=== PATIENT | male | born 1960 ===

== ENCOUNTER 2018-06-22 09:54 | Emergency (ER) | payer OTHER ==
[2018-06-22 09:59] VITALS: BMI 33.4
[2018-06-22 10:02] VITALS: RESP 18; O2SAT 96
[2018-06-22] MEDS ORDERED: Sodium Chloride 0.9% 1,000 ML IV STA (10:52)
[2018-06-22 11:44] LABS: BASO % 0.4 % (0.0-2.0); EOS # 0.1 K/uL (0.0-0.7); EOS % 0.7 % (0.0-4.0); HEMOGLOBIN 15.9 g/dL (12.0-18.0); LYMPH # 1.7 K/uL (1.0-4.3); LYMPH % 19.6 % (20.0-40.0); MEAN CELL VOLUME 93.9 fL (80.0-94.0); MEAN CORPUSCULAR HGB CONC 34.1 g/dL (33.0-37.0); MEAN PLATELET VOLUME 10.3 fL (7.2-11.7); MONO # 0.5 K/uL (0.0-0.8); MONO % 5.6 % (0.0-10.0); NEUT # 6.3 K/uL (1.8-7.0); NEUT % 73.7 % (50.0-75.0); NRBC % 0.2 % (0.0-2.0); RBC 4.95 Mil/uL (4.40-5.90); RED CELL DISTRIBUTION WIDTH 13.9 % (11.5-14.5); WHITE BLOOD COUNT 8.5 K/uL (4.8-10.8)
[2018-06-22 11:46] LABS: URINE BILIRUBIN NEGATIVE (NEGATIVE); URINE BLOOD 1+ (NEGATIVE); URINE CLARITY Clear (Clear); URINE COLOR Yellow (YELLOW); URINE GLUCOSE (UA) 3+ mg/dL (Normal); URINE LEUKOCYTE ESTERASE NEG Leu/uL (Negative); URINE PROTEIN NEGATIVE (NEGATIVE); URINE UROBILINOGEN NORMAL mg/dL (0.2-1.0)
[2018-06-22 11:55] LABS: PROTHROMBIN TIME 11.3 SECONDS (9.7-12.2)
[2018-06-22 11:59] LABS: ALB/GLOB RATIO 1.7 (1.0-2.1); ALBUMIN 4.1 g/dL (3.5-5.0); ALT/SGPT 21 U/L (21-72); AST/SGOT 25 U/L (17-59); BLOOD UREA NITROGEN 8 mg/dL (9-20); CALCIUM 9.1 mg/dl (8.6-10.4); GFR NON-AFRICAN AMERICAN > 60; LIPASE 81 U/L (23-300)
[2018-06-22] MEDS ORDERED: Sodium Chloride 0.9% 1,000 ML ONE (12:22)
--- NOTE | 2018-06-22 12:23 | US ---
Right upper quadrant abdominal ultrasound HISTORY: Right upper quadrant abdominal pain. COMPARISON: None available. Technique: Real-time sonography was performed through the right upper quadrant of the abdomen. FINDINGS: Limited study secondary to large patient body habitus. Liver: Prominent measuring 18.7 centimeters in length. Increased echogenicity of the hepatic parenchymal cortex suggestive for fatty infiltration versus hepatic parenchymal disease. Clinical correlation. Gallbladder: 6 millimeter echogenic foci at the gallbladder wall suggestive for polyp versus calculi. This appears nonmobile. Normal wall thickness of 2.7 millimeters. No gross wall edema. Negative sonographic Cool's sign. Common bile duct measures 3 millimeters, within normal limits. Limited visualization of the pancreas. Limited visualization of the aorta. Visualized portions appear grossly preserved. IVC is grossly preserved. Right kidney: 12.5 x 6.4 x 6.5 centimeters. No calculi or hydronephrosis. Impression: Limited study secondary to large patient body habitus. Prominent liver measuring 18.7 centimeters in length with associated increased echogenicity of the hepatic parenchymal cortex suggestive for fatty infiltration versus hepatic parenchymal disease. Clinical correlation. 6 millimeter nonmobile echogenic foci at the gallbladder wall suggestive for polyp versus calculus. No gross wall thickening. No gross wall edema. Negative sonographic Cool's sign. Limited visualization of the pancreas. Limited visualization the aorta.
--- NOTE | 2018-06-22 13:20 | C.PDOC ---
History Of Present Illness 57 y/o male comes in complaining of RUQ pain x1 week. Patient denies any vomiting, diarrhea, fever, or chills. Patient states he has decreased appetite. Otherwise he has no other complaints. Time Seen by Provider: 06/22/18 10:30 Chief Complaint (Nursing): Abdominal Pain History Per: Patient History/Exam Limitations: no limitations Onset/Duration Of Symptoms: Days Current Symptoms Are (Timing): Still Present Past Medical History Reviewed: Historical Data, Nursing Documentation, Vital Signs Vital Signs: Last Vital Signs Temp 97.5 F L 06/22/18 09:59 Pulse 101 H 06/22/18 09:59 Resp 18 06/22/18 09:59 BP 194/108 H 06/22/18 09:59 Pulse Ox 96 06/22/18 09:59 - Medical History PMH: Hiatal Hernia Family History: States: No Known Family Hx - Social History Hx Alcohol Use: Yes Hx Substance Use: No - Immunization History Hx Tetanus Toxoid Vaccination: No Hx Influenza Vaccination: No Hx Pneumococcal Vaccination: No Review Of Systems Except As Marked, All Systems Reviewed And Found Negative. Constitutional: Positive for: Other (Decreased appetite). Negative for: Fever, Chills Gastrointestinal: Positive for: Abdominal Pain (RUQ). Negative for: Vomiting, Diarrhea Genitourinary: Negative for: Dysuria Musculoskeletal: Negative for: Back Pain Physical Exam - Physical Exam Appears: Non-toxic, No Acute Distress Skin: Warm, Dry Head: Atraumatic, Normacephalic Eye(s): bilateral: Normal Inspection Oral Mucosa: Moist Neck: Supple Cardiovascular: Rhythm Regular, No Murmur Respiratory: No Rales, No Rhonchi, No Wheezing Gastrointestinal/Abdominal: Tenderness (in RUQ), Guarding, Hernia (ventral hernia, reducible, nontender) Extremity: No Pedal Edema Extremity: Bilateral: Atraumatic, Normal Color And Temperature, Normal ROM Neurological/Psych: Oriented x3, Normal Speech ED Course And Treatment - Laboratory Results Result Diagrams: 06/22/18 11:34 06/22/18 11:34 Lab Results: PT 11.3 SECONDS (9.7-12.2) 06/22/18 11:34 INR 1.0 06/22/18 11:34 APTT 35 SECONDS (21-34) H 06/22/18 11:34 Total Bilirubin 0.4 mg/dL (0.2-1.3) 06/22/18 11:34 AST 25 U/L (17-59) 06/22/18 11:34 ALT 21 U/L (21-72) 06/22/18 11:34 Alkaline Phosphatase 66 U/L (38-126) 06/22/18 11:34 Total Protein 6.5 g/dL (6.3-8.3) 06/22/18 11:34 Albumin 4.1 g/dL (3.5-5.0) 06/22/18 11:34 Globulin 2.4 gm/dL (2.2-3.9) 06/22/18 11:34 Albumin/Globulin Ratio 1.7 (1.0-2.1) 06/22/18 11:34 Lipase 81 U/L (23-300) 06/22/18 11:34 Urine Color Yellow (YELLOW) 06/22/18 11:34 Urine Clarity Clear (Clear) 06/22/18 11:34 Urine pH 6.0 (5.0-8.0) 06/22/18 11:34 Ur Specific [place] 1.018 (1.003-1.030) 06/22/18 11:34 Urine Protein Negative mg/dL (NEGATIVE) 06/22/18 11:34 Urine Glucose (UA) 3+ mg/dL (Normal) H 06/22/18 11:34 Urine Ketones Negative mg/dL (NEGATIVE) 06/22/18 11:34 Urine Blood 1+ (NEGATIVE) H 06/22/18 11:34 Urine Nitrate Negative (NEGATIVE) 06/22/18 11:34 Urine Bilirubin Negative (NEGATIVE) 06/22/18 11:34 Urine Urobilinogen Normal mg/dL (0.2-1.0) 06/22/18 11:34 Ur Leukocyte Esterase Neg Radha/uL (Negative) 06/22/18 11:34 O2 Sat by Pulse Oximetry: 96 (RA) Pulse Ox Interpretation: Normal - CT Scan/US Abdomen US Other Rad Studies (CT/US): Read By Radiologist, Radiology Report Reviewed CT/US Interpretation: FINDINGS: Limited study secondary to large patient body habitus. Liver: Prominent measuring 18.7 centimeters in length. Increased echogenicity of the hepatic parenchymal cortex suggestive for fatty infiltration versus hepatic parenchymal disease. Clinical correlation. Gallbladder: 6 millimeter echogenic foci at the gallbladder wall suggestive for polyp versus calculi. This appears nonmobile. Normal wall thickness of 2.7 millimeters. No gross wall edema. Negative sonographic Cool's sign. Common bile duct measures 3 millimeters, within normal limits. Limited visualization of the pancreas. Limited visualization of the aorta. Visualized portions appear grossly preserved. IVC is grossly preserved. Right kidney: 12.5 x 6.4 x 6.5 centimeters. No calculi or hydronephrosis. Impression: Limited study secondary to large patient body habitus. Prominent liver measuring 18.7 centimeters in length with associated increased echogenicity of the hepatic parenchymal cortex suggestive for fatty infiltration versus hepatic parenchymal disease. Clinical correlation. 6 millimeter nonmobile echogenic foci at the gallbladder wall suggestive for polyp versus calculus. No gross wall thickening. No gross wall edema. Negative sonographic Cool's sign. Limited visualization of the pancreas. Limited visualization the aorta. Progress Note: Labs, abdomen US, and UA ordered. Patient was given IV fluids, protonix, and toradol. On re-evaluation patient feels better. He was seen by surgery resident at a bedside and was cleared to be d/c home with Clinic, GI and general surgery follow up. Patient was found to be hypertensive and blood sugar was elevated. Rx for Metformin and Lisinopril given Patient was instructed to f/u in the Clinic [facility]. Disposition - Disposition Referrals: [facility] [Outside] Disposition: HOME/ ROUTINE Disposition Time: 14:53 Condition: STABLE Additional Instructions: Follow up with PMD within 1-2 days. Return to ED if feel worse. Prescriptions: metFORMIN [glucOPHAGE] 500 mg PO DAILY #30 tab Lisinopril [Zestril] 10 mg PO DAILY #30 tab Instructions: High Blood Pressure (DC), Acute Abdomen (Belly Pain) Forms: [facility] (Yoruba) - Clinical Impression Clinical Impression: Abdominal pain, Hypertension - PA / THEATRICAL SCENIC DESIGNER / Resident Statement MD/DO has reviewed & agrees with the documentation as recorded. - Scribe Statement The provider has reviewed the documentation as recorded by the Scribe Lilli Coleman All medical record entries made by the Scribe were at my direction and pers onally dictated by me. I have reviewed the chart and agree that the record accurately reflects my personal performance of the history, physical exam, medical decision making, and the department course for this patient. I have also personally directed, reviewed, and agree with the discharge instructions and disposition.
--- NOTE | 2018-06-22 13:36 | CP.PCM.CON ---
History of Present Illness - History of Present Illness History of Present Illness: SURGERY NOTE FOR DR. HEATH 57M with RUQ pain for 7 days which is now improved. Patient tolerating diet, no nausea or vomiting, no fevers or chills. having bowel function but admits to constipation, never had a colonoscopy before. Patient never seen and physician before. Admits to daily drinking of beer and smoking tobacco everyday. Past Patient History - Past Social History Smoking Status: Light Smoker < 10 Cigarettes Daily - GASTROINTESTINAL Hx Gastrointestinal Disorders: Yes - PSYCHIATRIC Hx Substance Use: No - SURGICAL HISTORY Hx Surgeries: No Meds Allergies/Adverse Reactions: Allergies Allergy/AdvReac Type Severity Reaction Status Date / Time No Known Allergies Allergy Verified 06/22/18 09:58 Physical Exam - Constitutional Appears: Non-toxic, No Acute Distress Additional comments: obese - Eye Exam Eye Exam: EOMI, PERRL - ENT Exam ENT Exam: Mucous Membranes Moist - Respiratory Exam Respiratory Exam: Clear to Auscultation Bilateral, NORMAL BREATHING PATTERN - Cardiovascular Exam Cardiovascular Exam: REGULAR RHYTHM, +S1, +S2 - GI/Abdominal Exam GI & Abdominal Exam: Distended, Soft. absent: Firm, Guarding, Rebound, Rigid, Tenderness Additional comments: diastasis recti - Extremities Exam Extremities exam: Negative for: pedal edema, tenderness - Neurological Exam Neurological exam: Alert, Oriented x3 - Psychiatric Exam Psychiatric exam: Normal Affect, Normal Mood - Skin Skin Exam: Dry, Intact, Normal Color, Warm Results - Vital Signs Recent Vital Signs: Last Vital Signs Temp 97.5 F L 06/22/18 09:59 Pulse 101 H 06/22/18 09:59 Resp 18 06/22/18 09:59 BP 194/108 H 06/22/18 09:59 Pulse Ox 96 06/22/18 13:21 - Labs Result Diagrams: 06/22/18 11:34 06/22/18 11:34 Labs: Laboratory Results - last 24 hr 06/22/18 06/22/18 06/22/18 11:34 11:34 11:34 WBC 8.5 RBC 4.95 Hgb 15.9 Hct 46.5 MCV 93.9 MCH 32.0 H MCHC 34.1 RDW 13.9 Plt Count 238 MPV 10.3 Neut % (Auto) 73.7 Lymph % (Auto) 19.6 L [place] % (Auto) 5.6 Eos % (Auto) 0.7 Baso % (Auto) 0.4 Neut # (Auto) 6.3 Lymph # (Auto) 1.7 [place] # (Auto) 0.5 Eos # (Auto) 0.1 Baso # (Auto) 0.0 PT 11.3 INR 1.0 APTT 35 H Sodium Potassium Chloride Carbon Dioxide Anion Gap BUN Creatinine Est GFR ( Amer) Est GFR (Non-Af Amer) Random Glucose Calcium Total Bilirubin AST ALT Alkaline Phosphatase Total Protein Albumin Globulin Albumin/Globulin Ratio Lipase Urine Color Yellow Urine Clarity Clear Urine pH 6.0 Ur Specific [place] 1.018 Urine Protein Negative Urine Glucose (UA) 3+ H Urine Ketones Negative Urine Blood 1+ H Urine Nitrate Negative Urine Bilirubin Negative Urine Urobilinogen Normal Ur Leukocyte Esterase Neg 06/22/18 11:34 WBC RBC Hgb Hct MCV MCH MCHC RDW Plt Count MPV Neut % (Auto) Lymph % (Auto) [place] % (Auto) Eos % (Auto) Baso % (Auto) Neut # (Auto) Lymph # (Auto) [place] # (Auto) Eos # (Auto) Baso # (Auto) PT INR APTT Sodium 136 Potassium 4.1 Chloride 97 L Carbon Dioxide 31 H Anion Gap 13 BUN 8 L Creatinine 0.5 L Est GFR ( Amer) > 60 Est GFR (Non-Af Amer) > 60 Random Glucose 269 H Calcium 9.1 Total Bilirubin 0.4 AST 25 ALT 21 Alkaline Phosphatase 66 Total Protein 6.5 Albumin 4.1 Globulin 2.4 Albumin/Globulin Ratio 1.7 Lipase 81 Urine Color Urine Clarity Urine pH Ur Specific [place] Urine Protein Urine Glucose (UA) Urine Ketones Urine Blood Urine Nitrate Urine Bilirubin Urine Urobilinogen Ur Leukocyte Esterase Assessment & Plan - Assessment and Plan (Free Text) Assessment: 57M with RUQ abdominal pain which is resolved US: 4mm polyp in Gallbladder Plan: - please follow up in clinic for check up - please follow up with GI for screening Discussed with Dr. Bonifacio Walsh, PGY3
[2018-06-22 14:59] VITALS: BP 179/109; PULSE 68; TEMP 98.5
--- NOTE | 2018-06-24 17:24 | CARD ---
APPROVED REPORT Date of service: 06/22/2018 EKG Measurement Heart [id number] <Conclusion> Normal sinus rhythm Anteroseptal infarct, age undetermined Abnormal ECG
== END 2018-06-22 15:09 | disposition home or self-care (01) ==
LOC: C.ER 09:54
DX: R10.11 Right upper quadrant pain (principal); I10 Essential (primary) hypertension; F17.210 Nicotine dependence, cigarettes, uncomplicated
CPT/HCPCS: 76705; 80053; 81001; 83690; 85025; 85610; 85730; 93005; 96361; 96374; 96375; 99284; C9113; J1885; J7030